=== PATIENT | female | born 1930 | race Caucasian/White ===

== ENCOUNTER 2019-11-30 17:23 | Inpatient (IN) | payer MEDICARE, OTHER ==
[~2019-11-30] VITALS: Ht 167.6 cm; Wt 67.8 kg
--- NOTE | ~2019-11-30 | OP ---
[address] [address] OPERATIVE REPORT Name: SANDRA EDEN Room: [address] IN .R.#: [id number] Admission: 11/30/19 Attend Phys: Benny Villafana Discharge: Date of : 04/23/[birth year] Report #: [id number] THIS REPORT FOR: //name// CC: FAM unknown Gavin Castrejon DATE OF SERVICE: 12/01/2019 PREOPERATIVE DIAGNOSIS: Comminuted left hip intertrochanteric fracture. POSTOPERATIVE DIAGNOSIS: Comminuted left hip intertrochanteric fracture. OPERATION PERFORMED: Open reduction and internal fixation of left proximal femur with cephalomedullary nail. SURGEON: Bruno Williamson DO HAT SPRAYER: Kareem Garcia DO ESTIMATED BLOOD LOSS: 100 mL. ANTIBIOTICS: 600 mg of clindamycin given IV within 1 hour of skin incision. ANESTHESIA: General plus local within the operative field. DRAINS: None. SPECIMENS: None. COMPLICATIONS: None. CONDITION: Stable. DISPOSITION: PACU to Med/Surg floor. IMPLANTS USED: The Sandra long gamma nail system was utilized with an 11 x 380 mm long gamma nail with a 100 mm lag screw and a 45 mm distal interlocking screw. OPERATIVE INDICATIONS: The patient is an 89-year-old female who presented to [facility] on the evening of 11/30/2019 after sustaining a fall at her [facility] die [facility] care facility. She landed on her left hip, had immediate pain and inability to bear weight. Radiographs did reveal a comminuted displaced intertrochanteric hip fracture. Risks, indications, and treatment alternatives were discussed with the patient and her family. Ultimately, it was decided to proceed with an insertion of a cephalomedullary nail today and her [address] [address] OPERATIVE REPORT Name: SANDRA EDEN Room: [address] IN ..#: [id number] Admission: 11/30/19 Attend Phys: Benny Villafana Discharge: Date of : 04/23/30 Report #: [id number] informed consent was signed. DESCRIPTION OF PROCEDURE: The patient was taken to the operating suite and placed on the operating table in supine position where general anesthesia was then induced. The patient was placed on the [place] table. The right lower extremity was well padded and flexed, so that we could obtain appropriate fluoroscopic images throughout the procedure. The left lower extremity was secured to the fracture table. Prior to the operative prep, a closed reduction maneuver was performed with traction and internal rotation. The reduction was confirmed to be appropriate on AP and lateral images, and we did proceed with a left hip sterile prep at this point. A time-out was then performed to confirm that our safety checklist has been completed and all of the OR personnel was in agreement. The axis of the femur was marked out utilizing the C-arm. A skin incision was then made proximal to the greater trochanter in line with the femur, about 4 cm. A sharp dissection was carried down through skin and fascial layer. A hemostat was then used to expose the tip of the greater trochanter. The starting guidepin was then placed in the appropriate position on the greater trochanter in both the AP and lateral imaging. The 15.5 mm opening reamer was then placed down to the level of the lesser trochanter. The starting guidepin was removed and replaced with a ball tip guidewire. This was measured distally to the level of the superior pole of the patella. This measured approximately 380 mm. We then began with sequential reaming while the fracture was held in a reduced position. Indirect reduction maneuver was used by pushing lateral to medial on the greater trochanter fragment, which did reduce the fracture very well. Sequential reaming was then performed with 11, 12, and 13 mm reamers. There was a mild chatter encountered. The gamma nail was then passed over the guidewire. The guidewire was removed. The trocar was passed through the targeting guide, and the skin incision was made in appropriate positioning for the lag screw. Sharp dissection was carried down through the skin and subcutaneous tissue and the fascial layer. The trocar was then introduced and placed on the lateral aspect of the femur. The guidepin was then introduced through this. This was confirmed to be in appropriate positioning within the femoral neck and in the central aspect of the femoral head on both the AP and lateral imaging. This was then appropriately measured and the cannulated reamer was placed at 100 mm and was reamed over the guidepin. The appropriate sized lag screw was then placed. The fracture was noted to remain in a reduced position at this point. The set screw was then placed and the lag screw was confirmed to be locked into position. The targeting guide was then removed. Attention was taken to the distal femur where a perfect kootenai technique was utilized to place the distal interlocking screw. Skin incision was made over the distal femur. The drill was placed on the lateral femoral cortex. It was then drilled bicortically, measured appropriate length screw. This was then placed and found to have excellent purchase. Final C-arm fluoroscopy images were then taken, the implants were in appropriate positioning, and the fracture was well reduced. The wounds were then copiously irrigated. A layered closure performed with #1 Vicryl suture in a uaiqoo-ur-afeyr fashion on the fascial [address] [address] OPERATIVE REPORT Name: SANDRA EDEN Room: [address] IN [facility].#: [id number] Admission: 11/30/19 Attend Phys: Benny Villafana Discharge: Date of : 04/23/30 Report #: [id number] layer. The subcutaneous layer was re-approximated with 2-0 Vicryl. [place] were used on the skin. Mepilex dressings were applied followed by a pressure dressing with 4 x 4 bandages and ABD bandages and tape. The patient tolerated the procedure well and was transferred to the PACU in stable condition with no apparent complications. Dr. Williamson was present for the entirety of the operation. By: [id number] Williamson, /nt
[2019-11-30 17:31] VITALS: BP 189/74
[2019-11-30] MEDS ORDERED: VITAMIN D400 UNIT PO (17:55)
[2019-11-30] MEDS ORDERED: VYZULTA5 ML OPHTHALMIC (17:55)
[2019-11-30] MEDS ORDERED: ZESTRIL5 MG PO (17:56)
[2019-11-30] MEDS ORDERED: EFFER-K 10 MEQ10 ME1 PO (17:56)
[2019-11-30] MEDS ORDERED: NAMENDA 10 MG T10 MG PO (17:56)
[2019-11-30] MEDS ORDERED: VITAMIN B-121000 MC2 SUBLING (17:56)
--- NOTE | 2019-11-30 18:20 | NUR ---
PUREWICK PLACED R/T INCONTINENCE AND PAIN IN HIP
[2019-11-30 19:53] LABS: ABSOLUTE BASOPHILS 0.1 thou/uL (0.0-0.2); ABSOLUTE EOSINOPHILS 0.1 thou/uL (0.0-0.7); ABSOLUTE LYMPHOCYTES 1.7 thou/uL (0.8-5.3); ABSOLUTE MONOCYTES 0.7 thou/uL (0.0-1.2); ABSOLUTE NEUTROPHILS 9.4 thou/uL (1.6-8.1); EOSINOPHILS 0.5 %; HEMATOCRIT 38.5 % (37.0-47.0); HEMOGLOBIN 13.2 gm/dL (12.0-15.0); LYMPHOCYTES 14.1 %; MCH 30.5 pg (26.0-34.0); MCHC 34.3 g/dL (28.0-37.0); MCV 88.8 fL (80.0-100.0); MONOCYTES 6.1 %; MPV 8.7 fl. (7.2-11.1); NUCLEATED RBCS 0 /100WBC; PLATELET COUNT* 187 thou/uL (150-400); POLYS 78.3 %; RBC 4.34 mil/uL (4.20-5.00); RDW-CV 14.5 % (10.5-14.5)
[2019-11-30 20:05] LABS: APTT 21.6 Seconds (25.0-31.3)
[2019-11-30 20:21] LABS: CALCIUM 8.4 mg/dL (8.5-10.1); CREATININE 0.8 mg/dL (0.6-1.3)
[2019-11-30 20:25] LABS: ALBUMIN 3.3 g/dL (3.4-5.0); TOTAL BILIRUBIN 0.5 mg/dL (<0.1-1.0); TOTAL PROTEIN 6.3 g/dL (6.4-8.2)
[2019-11-30 20:49] LABS: URINE BILIRUBIN NEGATIVE (Negative); URINE BLOOD NEGATIVE (Negative); URINE CLARITY CLEAR; URINE COLOR YELLOW; URINE GLUCOSE-RANDOM NEGATIVE (Negative); URINE KETONES NEGATIVE (Negative); URINE LEUKOCYTES-REFLEX NEGATIVE (Negative); URINE NITRITE-REFLEX NEGATIVE (Negative); URINE PROTEIN NEGATIVE (Negative); URINE SPECIFIC GRAVITY 1.015 (1.005-1.030); URINE UROBILINOGEN 0.2 E.U./dl (0.2-1.0)
[2019-11-30 22:15] VITALS: BP 159/55
[2019-11-30 22:25] VITALS: BP 118/67
--- NOTE | 2019-12-01 00:08 | NUR ---
ALERT AND ORIENTED X 4 FEMALE WITH FORGETFULNESS TO ROOM 105 BY CART FROM ER ACCOMPANIED BY SON NATHANAEL EDEN (AND GILMAR WORTHINGTON) IN STABLE CONDIITON. ADMISSION ROUTINES IN PROGRESS. VITAL SIGNS STABLE. CONTINUE TO MONITOR.
--- NOTE | 2019-12-01 04:43 | NUR ---
PATIENT HAS REMAINED ALERT AND ORIENTED X 4 WITH FORGETFULNES. MEDICATED FOR PAIN X 1 OF THIS WRITING TO GOOD EFFECT. LLE ELEVATED ON PILLOW. NOTED DEFORMITY LEFT HIP AREA. SCD'S INITIATED. NPO AT MIDNIGHT. IVF'S PER ORDER. AWAITING ORTHO CONSULT THIS AM. BED ALARM ON FOR SAFETY. CONTINUE TO MONITOR.
[2019-12-01 08:13] VITALS: BP 135/49
--- NOTE | 2019-12-01 09:00 | NUR ---
ATTEMPT TO VISIT WITH PT. PT IN OR. WILL ATTEMPT AGAIN THIS AFTERNOON
--- NOTE | 2019-12-01 11:14 | EKG ---
[place] [address] ELECTROCARDIOGRAM REPORT Name: SANDRA EDEN Room: [address] ADM IN [facility].#: [id number] Admission: 11/30/19 Attend Phys: Benny Villafana Discharge: Date of : 04/23/30 Report #: [id number] THIS REPORT FOR: //name// [facility] ED Test Date: 2019-11-30 Test Time: 19:20:19 Pat Name: SANDRA EDEN Department: Room: [facility] Gender: F Instructor Creeler: : 1930 Requested By: Chelle De Santiago Order Number: [id number] MD: Tad Kraus Measurements Intervals [place] Rate: 54 P: 80 DC: 156 QRS: 64 QRSD: 108 T: 59 QT: 432 QTc: 410 Interpretive Statements Sinus bradycardia Biatrial enlargement Abnormal R-wave progression, early transition No previous ECG available for comparison Electronically Signed On 12-01-2019 11:13:37 PIGMENT PUSHER by Tad Kraus [email or web address] <ELECTRONICALLY SIGNED> By: Tad Kraus MD, [facility] 12/01/19 1113 19 19 Tad Kraus MD, FACC /EPI
--- NOTE | 2019-12-01 13:46 | NUR ---
PT ARRIVED BACK FROM PACU ABOUT 1335. PT IS GRUMPY AND DOES NOT WANT TO BE ASKED QUESTIONS OR BE ASSESSED. DRESSING C/D/I. IV PATENT. REFUSES OX, PULSE OX IN PLACE. ICE PACK IN PLACE. FALL PRECAUTIONS IN PLACE. WILL CONTINUE TO MONITOR.
--- NOTE | 2019-12-01 14:37 | NUR ---
CM ASSESSMENT: PT BACK FROM SURGERY BUT SLEEPY.SPOKE WITH SON ON PHONE. HE STATES SHE LIVES AT THE [facility]. PT WILL NEED REHAB/SNU UPON DC. SON STATES HE WOULD LIKE TO REMAIN IN [place] IF POSSIBLE. FIRST CHOICE IS [facility] OR REHAB UNIT AT [facility]. HE WOULD ALSO BE OPEN TO [facility]
[2019-12-01 16:44] VITALS: BP 140/82
--- NOTE | 2019-12-01 17:25 | NUR ---
PT IS A&Ox2, SINCE ARRIVED BACK TO FLOOR FROM PACU PT HAS BEEN FORGETFUL ABOUT WHERE SHE IS AND WHY SHE IS HERE. NORCO GIVEN FOR PAIN. DENIED NAUSEA, ABLE TO EAT DINNER. IV PATENT. DRESSING C/D/I. ICE PACK, PULSE OX AND SCDs IN PLACE. HAS NOT GOT UP SINCE SURGERY. SON HAS BEEN AT BEDSIDE MOST OF SHIFT. FALL PRECAUTIONS IN PLACE. CALL LIGHT WITHIN REACH. WILL CONTINUE TO MONITOR.
[2019-12-01 20:00] VITALS: BP 151/60
[2019-12-02 02:22] VITALS: BP 141/60
[2019-12-02 04:04] LABS: HEMATOCRIT 29.2 % (37.0-47.0)
[2019-12-02 04:11] LABS: HEMOGLOBIN 10.1 gm/dL (12.0-15.0)
[2019-12-02 04:32] VITALS: BP 167/71
--- NOTE | 2019-12-02 04:40 | NUR ---
PATIENT LESS ORIENTED THIS SHIFT POST-OP. NEEDED VERY FREQUENT INTERACTION PATIENT PULLING AT LINES, SCD'S, PULLING O2 SAT MONITOR LEAD OFF 3X AND CATHETER. KEARNEY DISCONTUNED AT 0400 PER POST-OP D/C PROTOCOL. MEDICATED X 2 FOR PAIN. VITAL SIGNS STABLE. LESS RESTLESS AFTER KEARNEY CATHETER REMOVED. CURRENTLY FOLDING HER BLANKETS. BED ALARM ON FOR SAFETY. FIRST VOID PENDING. CONTINUE TO MONITOR.
--- NOTE | 2019-12-02 08:03 | NUR ---
SPOKE TO YUVAL MILLER REGARDING PATIENT'S INCREASED AGGITATION. NEW ORDERS RECEIVED.
[2019-12-02 08:45] VITALS: BP 137/55
[2019-12-02 16:00] VITALS: BP 119/53
[2019-12-02 20:00] VITALS: BP 153/61
--- NOTE | 2019-12-02 20:17 | NUR ---
I ASSUMED CARE OF THE PATIENT AT 0700. SHE IS ALERT TO SELF ONLY. BED IS IN THE LOW LOCKED POSITION AND CALL LIGHT IS IN REACH. PATIENT NEEDS ARE MET DURING HOURLY ROUNDING AND PAIN IS MANAGED WITH PRN MEDS. FAMILY IS AT THE BEDSIDE. PATIENT IS A 'NO CODE' AT THE [facility], BUT STILL A FULL CODE HERE FROM SURGERY AND SHOULD BE ADJUSTED. SHE WOULD ALSO LIKE TO BE CONSIDERED FOR REHAB HERE WITH DR MARCELINO. SHE PULLED LOTS OF STUFF OFF/OUT DURING THE NIGHT. TODAY SHE D/C'D HER OWN IV. SURGICAL BANDAGE IS STILL C/D/I. SHE IS INCONT OF BLADDER. SHE DESATS ON ROOM AIR, BUT ISN'T VERY COMPLIANT WITH NC AT 2 LITERS AND FAMILY IS AWARE. WILL CONTINUE TO MONITOR.
[2019-12-03 04:34] LABS: HEMATOCRIT 21.7 % (37.0-47.0); MCH 31.4 pg (26.0-34.0); MCHC 35.3 g/dL (28.0-37.0); MCV 89.1 fL (80.0-100.0); MPV 9.2 fl. (7.2-11.1); RBC 2.44 mil/uL (4.20-5.00); RDW-CV 14.3 % (10.5-14.5); WBC 8.2 thou/uL (4.0-11.0)
--- NOTE | 2019-12-03 04:46 | NUR ---
ASSUMED PT CARE AT 1930. ALERT TO SELF. PT CALM AND SLEPT OVERNIGHT. INCONTINENT OF BLADDER. SURGICAL BANDAGES TO LEFT HIP C/D/I. ON 2L 02 PER NC. PT REFUSED 0100 TYLENOL. PT IS A "NO CODE" AT THE [facility], BUT STILL A FULL CODE HERE FROM SURGERY. SHE WOULD ALSO LIKE TO BE CONSIDERED FOR REHAB HERE BY DR. MARCELINO. HOURLY ROUNDING IN PROGRESS, WILL CONTINUE TO MONITOR.
[2019-12-03 04:51] LABS: CALCIUM 7.4 mg/dL (8.5-10.1); CREATININE 0.7 mg/dL (0.6-1.3); MAGNESIUM 1.8 mg/dL (1.8-2.4); POTASSIUM 3.6 mmol/L (3.5-5.1)
[2019-12-03 04:59] LABS: HEMOGLOBIN 7.7 gm/dL (12.0-15.0)
[2019-12-03 07:45] VITALS: BP 118/46
[2019-12-03 16:00] VITALS: BP 119/55
--- NOTE | 2019-12-03 17:53 | NUR ---
PATIENT HAS BEEN A/O TO PERSON THIS SHIFT. PATIENT CONTINUES ON SCHEDULED TYLENOL FOR PAIN AND LIDODERM PATCH TO LEFT LEG. DRESSINGS REMAIN TO LEFT LEG. PATIENT WITH POOR APPETITE THIS SHIFT, ATE BETTER FOR LUNCH THAN BREAKFAST AND DINNER. ASSISTED WITH MENU FOR WEDNESDAY. REPOSITIONED THIS SHIFT WHEN ALLOWED. PATIENT MORE AWAKE AND CONVERSATIONAL THIS AFTERNOON. PATIENT INCONTINENT OF URINE, HOSSEIN-CARE PROVIDED. VITALS STABLE. UPDATED SON ON PLAN OF CARE. CM IN PROGRESS FOR DC PLANNING. WORKED WITH PHYSICAL THERAPY THIS SHIFT, UP IN CHAIR FOR PART OF THE SHIFT. FALL PRECAUTIONS IN PLACE. HOURLY ROUNDING COMPLETED. CALL LIGHT WITHIN REACH. WILL CONTINUE WITH PLAN OF CARE.
--- NOTE | 2019-12-03 19:28 | NUR ---
PATIENT UNABLE TO VOID. BLADDER DISTENDED, BLADDER SCAN SHOWED 628ML. PAGED DR. PATEL, DR. BARAKAT RETURNED CALL. ORDERS NOTED FOR KEARNEY CATHETER AND TO START FLOMAX. 16FR KEARNEY INSERTED, IMMEDIATE RETURN OF YELLOW URINE NOTED. PATIENT TOLERATED WELL. REPORT GIVEN TO NIGHT RN.
[2019-12-03 20:00] VITALS: BP 124/50
--- NOTE | 2019-12-04 02:57 | NUR ---
ASSESSMENT: PT REMAIN ALERT AND ORIENT TIMES TWO, CONFUSED TO SITUATION AND TIME. PT IS NOT SO EASY TO REORIENT BUT CONTINUAL REMINDERS GIVEN OF LEFT HIP FRACTURE. PT WAS RETAINING 630 ML OF URINE PER BLADDER SCAN. ORDER FROM YUVAL MILLER TO PLACE KEARNEY AND TO START FLOMAX. KEARNEY PLACED WITHOUT DIFFICULTY, DARK YELLOW URINE OUTPUT NOTED. DRESSING ON LEFT HIP INTACT, PT REMINDED NOT TO PULL DRESSING OFF. TURNED EVERY TWO HOURS. TOLERATING 2 LITERS. SCHEDULED TYLENOL GIVEN WITH GOOD RESULTS, PT SLEPT MOST OF THE NIGHT, SLOW PROGRESS TOWARDS DC GOALS, WILL CONTINUE TO MONITOR.
[2019-12-04 04:44] LABS: HEMATOCRIT 21.4 % (37.0-47.0); HEMOGLOBIN 7.6 gm/dL (12.0-15.0); MCH 31.7 pg (26.0-34.0); MCHC 35.7 g/dL (28.0-37.0); MCV 88.9 fL (80.0-100.0); MPV 9.1 fl. (7.2-11.1); RBC 2.4 mil/uL (4.20-5.00); RDW-CV 14.7 % (10.5-14.5); WBC 6.7 thou/uL (4.0-11.0)
[2019-12-04 05:02] LABS: CALCIUM 7.6 mg/dL (8.5-10.1); CREATININE 0.7 mg/dL (0.6-1.3); MAGNESIUM 1.8 mg/dL (1.8-2.4); POTASSIUM 3.4 mmol/L (3.5-5.1)
[2019-12-04 08:34] VITALS: BP 140/51
--- NOTE | 2019-12-04 10:36 | NUR ---
FAXED REFERRALS TO [facility] WITH POSSIBLE DISCHARGE TOMORROW, 12/05/19. WILL FOLLOW UP TO CONIRM THEY RECEIVED.
--- NOTE | 2019-12-04 15:40 | NUR ---
AUNDREA/PENNY CALLED [facility] AND SAID THEY CANNOT ACCEPT PT. SHE SAID HER D.O.N. FEELS PT.WOULD BE BETTER SERVED ON A MEMORY CARE UNIT. AWAITING CALL BACK FROM [facility] TO SAY IF THEY CAN ACCEPT PT. POSSIBLE DISCHARGE FOR TOMORROW.
--- NOTE | 2019-12-04 15:52 | NUR ---
ASSUMED CARE AT 0730. ALERT TO SELF HX OF DEMENTIA ON NAMENDA. HX OF L HIP FX. WBATLLE DRESSING C/D/I. EDEMA PRESENT LLE. PT. WAS TRANSFERRED TO RECLINER BY P.T. THIS A.M. PT. HAD L DRIFT PRONATION L ARM C/O PAIN AND DROPPING THINGS WITH L HAND. DR. FRANCOIS ORDERED CT ANGIOGRAM OF THE HEAD THIS AFTERNOON. PT. IS ON SCHEDULED TYLENOL FOR PAIN AND DENIES PAIN AT REST. WHEN TRANSFERRING BACK TO BED FOR CT PT. NEEDED MAX ASSIST WITH G BELT WALKER AND P.T. SEEMS AFTRAID OF EXPERIENCING PAIN WITH TRANSFER. SL RT. ANTECUBITAL FOR CT. RESTING IN BED AFTER C.T.
[2019-12-04 16:00] VITALS: BP 117/58
[2019-12-04 22:28] VITALS: BP 149/76
--- NOTE | 2019-12-05 04:47 | NUR ---
PATIENT CONFUSED AND TRYING TO LEAVE FACILITY BUT CANNOT GET OUT OF BED. SHE KEEPS YELLING TO LET HER OUT. VSS. MEPALEX ON HIP IS C/D/I. HAD TO GIVE 2MG HALDOL FOR ANXIETY AND SHE KEPT TRYING TO GET OUT OF BED. PLAN FOR NEURO WORKUP MRI OF HEAD RESULTS. WILL CONTINUE TO FOLLOW PLAN OF CARE.
[2019-12-05 07:15] VITALS: BP 155/64
[2019-12-05] MEDS ORDERED: FLOMAX0.4 MG PO (14:30)
[2019-12-05] MEDS ORDERED: ELIQUIS5 MG PO (14:30)
[2019-12-05] MEDS ORDERED: HIGH POTENCY I134 MG PO (14:31)
[2019-12-05] MEDS ORDERED: LIDOPATCH1 EACH TOP (14:33)
--- NOTE | 2019-12-05 15:09 | NUR ---
KOBI/AIMEE ASKING [facility] IF PT.READY FOR DISCHARGE TODAY. LIZ ASKED IF PT. COULD DISCHARGE TODAY. ONCE ANSWER RECEIVED, CM CALLED KOBI BACK. SHE SAID SHE COULD NOT TAKE PT.ANY LONGER TODAY BUT SHE CAN COME TOMORROW AM. NOTIFIED NURSING, AND PT.S SON.
[2019-12-05 16:00] VITALS: BP 174/57
--- NOTE | 2019-12-05 17:29 | NUR ---
PT REMAINED ALERT AND ORIENTED TO SELF. PT BP ELEVATED, PHYSICIAN NOTIFIED. PAIN MEDS GIVEN ORDERED. FALL RISK PRECAUTIONS IN PLACE. HOURLY ROUNDING COMPLETED. WILL CONTINUE TO MONITOR.
[2019-12-05 21:40] VITALS: BP 115/76
--- NOTE | 2019-12-06 04:51 | NUR ---
PT SLEEPING/RESTING QUIETLY THROUGH THE NIGHT. VSS ON RA. MEDS CRUSHED AND GIVEN WITH APPLESAUCE. PT DENIED PAIN. DRESSING INTACT. HOURLY ROUNDING COMPLETED. WILL CONTINUE TO MONITOR.
[2019-12-06 04:57] LABS: CHOLESTEROL 160 mg/dL (<200); HDL CHOLESTEROL 54 mg/dL (>40); LDL CHOLESTEROL 87 mg/dL (<100); TRIGLYCERIDE 98 mg/dL (<150); VLDL 20 mg/dL (<40)
[2019-12-06 05:19] LABS: SERUM ASSESSMENT CLEAR
[2019-12-06 08:45] VITALS: BP 158/58
[2019-12-06 15:59] LABS: ABSOLUTE BASOPHILS 0.1 thou/uL (0.0-0.2); ABSOLUTE EOSINOPHILS 0.2 thou/uL (0.0-0.7); ABSOLUTE LYMPHOCYTES 1.7 thou/uL (0.8-5.3); ABSOLUTE MONOCYTES 0.7 thou/uL (0.0-1.2); ABSOLUTE NEUTROPHILS 6.1 thou/uL (1.6-8.1); BASOPHILS 0.8 %; EOSINOPHILS 1.8 %; HEMATOCRIT 23.6 % (37.0-47.0); LYMPHOCYTES 19.5 %; MCH 31.1 pg (26.0-34.0); MCHC 33.8 g/dL (28.0-37.0); MCV 91.7 fL (80.0-100.0); MONOCYTES 7.9 %; MPV 8.6 fl. (7.2-11.1); NUCLEATED RBCS 0 /100WBC; PLATELET COUNT* 264 thou/uL (150-400); RBC 2.57 mil/uL (4.20-5.00); RDW-CV 14.9 % (10.5-14.5); WBC 8.7 thou/uL (4.0-11.0)
[2019-12-06 16:00] VITALS: BP 145/66
[2019-12-06 16:23] LABS: ALBUMIN 2.5 g/dL (3.4-5.0); CALCIUM 8.3 mg/dL (8.5-10.1); CREATININE 0.6 mg/dL (0.6-1.3); POTASSIUM 4.1 mmol/L (3.5-5.1); TOTAL BILIRUBIN 1.7 mg/dL (<0.1-1.0)
[2019-12-06 17:08] LABS: ESR (SEDRATE) 90 mm/hr (0-30)
--- NOTE | 2019-12-06 19:00 | NUR ---
PATIENT ORIENTED TO SELF. MAX ASST X3 TO BSC THIS AM, ARGUMENTATIVE WITH STAFF THIS AM. NOTED RESTING IN BED W/ EYES CLOSED, RESPS EVEN AND UNLABORED THRU MOST OF SHIFT, AROUSES TO VERBAL/TOUCH STIM. SEE MAR. DENIES PAIN THIS AFTERNOON. APPLESAUCE GIVEN WITH MEDS. HRLY ROUNDS DONE. PATIENT INCONTI AT TIMES. CALL LIGHT IN REACH. BED ALARM ON. ~TJRN
[2019-12-06 20:00] VITALS: BP 143/49
--- NOTE | 2019-12-07 04:40 | NUR ---
PATIENT HAS REMAINED ALERT AND ORIENTED X 1-2 WITH FORGETFULNESS. CONVERSATIONAL AT HS. TOOK ENSURE AND APPLESAUCE WITH ORAL MEDS. TURNED Q2H. PATIENT RESISTIVE AT TIMES BUT ABLE TO CONVINCE HER TO PARTICIPATE. DRESSING LEFT HIP DRY. INCONT URINE. SCHEDULED TYLENOL FOR PAIN MANAGEMENT HAS BEEN FAIRLY EFFECTIVE FOR THE ACTIVITY THAT HAS TAKEN PLACE THIS SHIFT. BED ALARM ON FOR SAFETY. SON CINTHYA CALLED AFTER HS MEDS/SNACK TO UPDATE HIM ON HER STATUS. SPECIFICALLY THAT SHE HAD BEEN AWAKE, TOOK NOURISHMENT AND HAD BEEN CONVERSATIONAL. CONTINUE TO MONITOR.
[2019-12-07 09:15] VITALS: BP 87/54
--- NOTE | 2019-12-07 13:57 | NUR ---
Nutrition: pt screen for LOS. Wt is WNL, no wt hx. Pt with dementia. Albumin 2.5. Meds reviewed. Nsg reports pt doing well with meals today; needs soft food and chopped meat as she does not have dentures. Does not appear at significant nutrition risk at this time.
--- NOTE | 2019-12-07 15:44 | NUR ---
CONFIRMED WITH SAMEERA AT [facility] THAT THEY WON'T HAVE AVAILABILITY UNTIL 12/11/19. LEFT VM MESSAGES WITH OSCAR/LAETA AT [facility] BUT WITH NO RESPONSE AT THIS TIME.
--- NOTE | 2019-12-07 19:00 | NUR ---
PATIENT NOTED TO HAVE A VAGAL RESPONSE WITH PHYSICAL THERAPY THIS AM. VS DONE, MS ALSO PRESENT IN AT THIS TIME. PATIENT REPOSITIONED BACK IN BED. HOSSEIN CARES DONE PRN W/ BARRIER CREAM APPLIED. SKIN NOTED W/ LARGE AMTS PURPLE/FADING BRUISING TO LLE AND HOSSEIN AREA. SEE MAR. PATIENT NOTED MORE RESPONSIVE THRU THIS SHIFT, CONVERSING AND JOKING W/ STAFF. EATING WELL. SON AND DTR-IN-LAW THRU SHIFT. HRLY ROUNDS DONE. BED ALARM ON. DRSG TO LT HIP SURG SITES NOTED W/ OLD DRNG, NO ODOR. ~TJRN
[2019-12-07 20:50] VITALS: BP 155/51
[2019-12-08 02:23] LABS: URINE BILIRUBIN NEGATIVE (Negative); URINE BLOOD 1+ (Negative); URINE CLARITY CLOUDY; URINE COLOR YELLOW; URINE GLUCOSE-RANDOM NEGATIVE (Negative); URINE KETONES NEGATIVE (Negative); URINE LEUKOCYTES 2+ (Negative); URINE NITRITE NEGATIVE (Negative); URINE PROTEIN NEGATIVE (Negative); URINE SPECIFIC GRAVITY 1.015 (1.005-1.030); URINE UROBILINOGEN 0.2 E.U./dl (0.2-1.0)
[2019-12-08 02:33] LABS: BACTERIA >30 Many /HPF (None Seen); CASTS None Seen /LPF (None Seen); CRYSTALS None Seen /LPF (None Seen); MUCUS 0-3 Light strn/LPF (None Seen); SQUAMOUS 0-3 Few /LPF (0-3); URINE RBC 3-10 Few /HPF (0-2); URINE WBC >25 Many /HPF (0-5)
[2019-12-08 04:09] LABS: ALBUMIN 2.1 g/dL (3.4-5.0); CALCIUM 7.6 mg/dL (8.5-10.1); CREATININE 0.6 mg/dL (0.6-1.3); POTASSIUM 4.2 mmol/L (3.5-5.1); TOTAL BILIRUBIN 1.2 mg/dL (<0.1-1.0); TOTAL PROTEIN 5.2 g/dL (6.4-8.2)
--- NOTE | 2019-12-08 06:08 | NUR ---
Oriented x 1-2 but very pleasant. Vital signs stable,roomair sat 100%. [place] mepilex dressing to L hip is dry and intact. She is very bruised to that L leg and groin and periarea. She has been incontinent of urine and also did have a BM. Straight cathed for UA and it was sent to lab. She is taking scheduled tylenol for pain. She has slept well.
[2019-12-08 07:40] VITALS: BP 121/50
--- NOTE | 2019-12-08 07:45 | CON ---
[address] [address] CONSULTATION Name: SANDRA EDEN Room: [address] IN .R.#: [id number] Admission: 11/30/19 Attend Phys: Benny Villafana Discharge: Date of : [birth year] Report #: [id number] THIS REPORT FOR: //name// CC: FAM unknown Gavin Castrejon DATE OF SERVICE: 12/07/2019 INFECTIOUS DISEASE CONSULTATION ATTENDING PHYSICIAN: Gavin Castrejon DO REASON FOR EVALUATION: Nosocomial fevers. HISTORY OF PRESENT ILLNESS: Chart reviewed, patient examined. This is an 89-year-old woman with history of some dementia, who sustained injury as a result of fall with a comminuted fracture of the left hip intertrochanteric site and underwent insertion of long cephalomedullary nail in the femur to repair. Postop course apparently has been complicated by some encephalopathy most recently over the course of last evening and developed a temperature elevation to 99.9. At this point, she is much more lucid per nursing staff. On questioning, she does admit to left hip pain. She denies significant discomfort otherwise. She has not had breathing difficulties. She states her appetite has been fair. As per the evaluation, chest x-ray was done, which showed no acute process. Lactic acid was 1.2. CRP was elevated at 113. White count was normal. Sed rate was 90. She is afebrile this morning. She has not been on any antibiotics. Urinalysis is pending. ALLERGIES: LISTED TO PENICILLINS. CURRENT MEDICATIONS: Include hydralazine, tamsulosin, tramadol, apixaban, famotidine, Haldol, lisinopril, memantine. PAST MEDICAL HISTORY: As described above, history of hypertension, hyperlipidemia, glaucoma, osteopenia, breast cancer. SOCIAL HISTORY: Nonsmoker, no ethanol, no illicit drug use. FAMILY HISTORY: Noncontributory. REVIEW OF SYSTEMS: Otherwise, limited. The patient has dementia. PHYSICAL EXAMINATION: GENERAL: She awakens easily. She is pleasant, cooperative. Does have memory deficits, in egnh-fw-gntlxnmt distress. She appears somewhat chronically ill, [place] [address] CONSULTATION Name: SANDRA EDEN Room: [address]#: [id number] Admission: 11/30/19 Attend Phys: Benny Villafana Discharge: Date of : [birth year] Report #: [id number] VITAL SIGNS: Temperature 98.4, pulse 78, respirations 18, blood pressure 143/49. SKIN: Warm, dry, no rashes. HEENT: Normocephalic. Extraocular muscles intact. NECK: Supple. LUNGS: Diminished breath sounds, otherwise clear. HEART: Regular. I do not appreciate any murmur. ABDOMEN: Soft, nontender, nondistended. EXTREMITIES: Left hip is palpably tender. There is no really evidence of a cellulitic process. There is some scant bloody drainage on the dressing. GENITOURINARY AND RECTAL: Deferred. LABORATORY DATA: Prealbumin 11.6. CBC: White count of 8.7, H and H 8.0 and 23.8, platelets of 264. Sed rate of 90. Sodium 139, potassium 4.1, chloride 104, bicarbonate is 25, anion gap of 10, BUN and creatinine 14 and 0.6. SGOT of 67, ALT of 50, albumin of 2.5, total protein 6.0. Estimated GFR of 94. Lactic acid 1.6. CRP of 113.2. ASSESSMENT AND PLAN: Nosocomial related fevers. It is not entirely clear as to the etiology. We will await urinalysis. There is no obvious point of focal pyogenic infection at this point. It is reasonable to continue to monitor expectantly off the antibiotics. Subsequently could add therapy if there is any evidence of clinical deterioration or ongoing fevers and may well be a noninfectious cause as well. When it is feasible, increase her activities. She was encouraged to use incentive spirometer, although she seemed unaware what its purpose was. In the event that she has an occult process that was worthwhile pursuing as she may not be a candidate for significant inflammatory processes, could CT of abdomen and pelvis, otherwise favor watchful waiting and see how she does. <ELECTRONICALLY SIGNED> By: Aidan Goddard MD 12/08/19 0745 [id number] Goddard MD /nt
--- NOTE | 2019-12-08 08:08 | NUR ---
ASSUMED CARE OF PATIENT THIS AM. PATIENT A/O X 1 THIS MORNING, PLEASANTLY CONFUSED. PATIENT DENIES PAIN WHEN ASKED. PATIENT NOTED TO HAVE SALINE LOCK TO RIGHT UPPER ARM, PATENT. PATIENT'S VITALS CHARTED. ASSISTED WITH BREAKFAST, APPETITE FAIR. DRESSING TO LEFT HIP NOTED, SOME SHADOWING OBSERVED, OTHERWISE INTACT. FALL PRECAUTIONS IN PLACE. WILL CONTINUE WITH PLAN OF CARE.
[2019-12-08 16:00] VITALS: BP 138/62
--- NOTE | 2019-12-08 16:30 | NUR ---
NO FAMILY HERE. LEFT FOR SON,CINTHYA ON HOME PHONE. UPDATED HIM THAT [facility] WADDELL SAID NO FOR SNF, [facility] WOULD NOT HAVE ANY BEDS UNTIL WEDNESDAY AND THAT WOULD LIKE 1-2 MORE OF HIS CHOICES FOR SNFS. PT.MOST LIKELY READY FOR DISCHARGE SOON.
--- NOTE | 2019-12-08 18:54 | NUR ---
PATIENT HAS BEEN A/O TO PERSON THIS SHIFT, PLEASANTLY CONFUSED. PATIENT WITH MEPILEX TO LEFT HIP, MINIMAL SHADOWING NOTED. PATIENT ATTEMPTING TO WORK WITH PT/OT, MAX ASSIST OF 2. PATIENT INCONTINENT OF URINE AND STOOL. REPOSITIONED WHEN ALLOWED. PATIENT'S TYLENOL DC'D DUE TO ELEVATED LFTs. ABDOMINAL ULTRASOUND COMPLETED. APPETITE FAIR, ASSISTED WITH MEALS. RECEIVED IV ROCEPHIN X 1. SALINE LOCK PATENT. FALL PRECAUTIONS IN PLACE. HOURLY ROUNDING COMPLETED. CALL LIGHT WITHIN REACH. WILL CONTINUE WITH PLAN OF CARE.
[2019-12-08 19:55] VITALS: BP 128/64
--- NOTE | 2019-12-09 05:11 | NUR ---
PT ALERT TO HERSELF, CONFUSED. MEDS GIVEN ORDERED. TRAMADOL GIVEN FOR PAIN PER PT REQUEST. DRESSING TO LT HIP INTACT. PT INCONTINENT. DIDNT USE CALL LIGHT PROPERLY. BED ALARM ON FOR SAFETY. HOURLY ROUNDING COMPLETED. WILL CONTINUE TO MONITOR.
[2019-12-09 08:09] VITALS: BP 145/49
[2019-12-09 09:16] LABS: HEMATOCRIT 25.2 % (37.0-47.0); HEMOGLOBIN 8.7 gm/dL (12.0-15.0); MCH 31.7 pg (26.0-34.0); MCHC 34.7 g/dL (28.0-37.0); MCV 91.2 fL (80.0-100.0); NUCLEATED RBCS 0 /100WBC; RBC 2.76 mil/uL (4.20-5.00); RDW-CV 15.2 % (10.5-14.5); WBC 8.4 thou/uL (4.0-11.0)
[2019-12-09 09:20] LABS: CALCIUM 7.9 mg/dL (8.5-10.1); CREATININE 0.5 mg/dL (0.6-1.3); POTASSIUM 3.9 mmol/L (3.5-5.1)
[2019-12-09 09:25] LABS: PLATELET COUNT* 350 thou/uL (150-400)
[2019-12-09 10:02] LABS: ABSOLUTE EOSINOPHILS 0.2 thou/uL (0.0-0.7); ABSOLUTE LYMPHOCYTES 2.3 thou/uL (0.8-5.3); ABSOLUTE MONOCYTES 0.9 thou/uL (0.0-1.2); ANISOCYTOSIS Occasional; PLATELET ESTIMATE ADEQUATE
--- NOTE | 2019-12-09 17:48 | NUR ---
PT A&Ox1-2. VITALS STABLE. IV PATENT. UP WITH 2 MAX ASSIST. HOME USED TO TRANSFER FROM CHAIR BACK TO BED. PAIN CONTROLLED WITH TRAMADOL. DENIED NAUSEA. TOLERATING DIET. PURE WICK USED FOR INCONTINENCE AND HARD TRANSFERING. DRESSING C/D/I. FALL PRECAUTIONS IN PLACE. CALL LIGHT WITHIN REACH. WILL CONTINUE TO MONITOR.
[2019-12-09 19:45] VITALS: BP 132/58
[2019-12-10 04:27] LABS: HEMATOCRIT 23.6 % (37.0-47.0); HEMOGLOBIN 8.2 gm/dL (12.0-15.0); MCH 31.6 pg (26.0-34.0); MCHC 34.6 g/dL (28.0-37.0); MCV 91.3 fL (80.0-100.0); MPV 7.8 fl. (7.2-11.1); RBC 2.58 mil/uL (4.20-5.00); RDW-CV 15.1 % (10.5-14.5); WBC 7.1 thou/uL (4.0-11.0)
--- NOTE | 2019-12-10 04:43 | NUR ---
PATIENT AWAKE WITH CONVERSATION. ORIENTED X 1. COOPERATIVE WITH Q2H TURNS. USING PUREWICK TONIGHT TO MANAGE URINARY INCONTINENCE. DRESSINGS LEFT HIP DRY AND INTACT. MEDICATED FOR PAIN X 1 THIS SHIFT TO GOOD EFFECT. VITAL SIGNS STABLE. MEDS/ANTIBIOTICS PER ORDER. FALL PRECAUTIONS IN PLACE INCLUDING BED ALARM. CONTINUE TO MONITOR.
[2019-12-10 04:50] LABS: CALCIUM 7.7 mg/dL (8.5-10.1); CREATININE 0.5 mg/dL (0.6-1.3); MAGNESIUM 1.8 mg/dL (1.8-2.4); POTASSIUM 4.1 mmol/L (3.5-5.1)
[2019-12-10 09:30] VITALS: BP 136/55
[2019-12-10 16:00] VITALS: BP 143/57
--- NOTE | 2019-12-10 18:08 | NUR ---
PT A&OxSELF, DROWSY. UP WITH THERAPY. UP WITH 2 MAX ASSIST. EATING PARTIAL MEALS. DRESSING C/D/I. ICE APPLIED. IV ABX FOR UTI. WAITING SKILLED PLACEMENT. FALL PRECAUTIONS IN PLACE. CALL LIGHT WITHIN REACH. WILL CONTINUE TO MONITOR.
[2019-12-10 19:50] VITALS: BP 125/57
[2019-12-11 03:00] LABS: URINE BILIRUBIN NEGATIVE (Negative); URINE BLOOD NEGATIVE (Negative); URINE CLARITY CLEAR; URINE COLOR YELLOW; URINE GLUCOSE-RANDOM NEGATIVE (Negative); URINE KETONES NEGATIVE (Negative); URINE LEUKOCYTES-REFLEX NEGATIVE (Negative); URINE NITRITE-REFLEX NEGATIVE (Negative); URINE PROTEIN NEGATIVE (Negative); URINE SPECIFIC GRAVITY 1.015 (1.005-1.030); URINE UROBILINOGEN 0.2 E.U./dl (0.2-1.0)
[2019-12-11 04:00] VITALS: BP 130/48
--- NOTE | 2019-12-11 04:31 | NUR ---
PATIENT HAS REMAINED ALERT AND ORIENTED TO SELF. TURNED Q2H. PUREWICK UTILIZED FOR INCONTINENCE. PATIENT DID HOWEVER CALL OUT EARLY AM AND WHEN ATTENDING TO CALL PATIENT STATED SHE NEEDED TO GO TO THE BR TO HAVE A BM. MOD BM AND VOID PER BEDPAN WITH PATIENT ABLE TO ASSIST WITH PLACEMENT. PATIENT ALSO FREELY AND INDEPENDENTLY GETTING DRINKS OF WATER FROM BEDSIDE TABLE WITHOUT PROMPTING. DRESSINGS LEFT HIP DRY AND INTACT. VITAL SIGNS STABLE. URINE SENT OVER NIGHT TO LAB FOR FOLLOW-UP UA. RESULTS WITHIN NORMAL. FALL PRECAUTIONS IN PLACE. CONTINUE TO MONITOR.
[2019-12-11] MEDS ORDERED: CIPRO500 MG PO (09:30)
--- NOTE | 2019-12-11 10:15 | NUR ---
NOTIFIED BY ALEC BECKHAM THAT PT.HAS DISCHARGE ORDERS. LIZ CALLED SON,CINTHYA TO SEE WHAT OTHER CHOICES HE HAD FOR SNFS, SINCE KEVYN SAID NO . WILL TRY [facility] AGA[facility] THIS AM. HE SAID HE WOUDL NEED TO GET BACK WITH ME, HE NEEDED TO SPEAK WITH HIS . REMINDED HIM HE HAD MOST OF LAST WEEK TO LOOK AT FACILITIES.
--- NOTE | 2019-12-11 10:43 | NUR ---
FAXED REFERRAL TO [facility] AT [facility]. CONFIRMED WITH TENZIN/INTAKE THAT PATIENT IS TO DC TODAY AND THAT THEY HAVE ONE BED AVAILABLE. DCP TO FOLLOW UP. [facility] [place] [phone]; [phone].
--- NOTE | 2019-12-11 11:46 | NUR ---
FAXED REFERRAL TO [facility] IN [place] SPOKE TO CHANEL/MOE THAT PATIENT IS DISCHARGING TODAY AND WOULD BE SENDING REFERRAL. [phone]; [phone].
--- NOTE | 2019-12-11 14:03 | NUR ---
FAXED DC SUMMARY TO [facility]. CONFIRMED WITH [facility]/ADMISSIONS THAT THEY HAVE RECEIVED AUTHORIZATION AND CAN ACCEPT PATIENT TODAY. CM TO FOLLOW. [phone]; [phone].
--- NOTE | 2019-12-11 14:33 | NUR ---
[facility] ACCEPTED PT.TO A SKILLED BED TODAY. SHE ARRANGED WC VAN FOR 4:30PM. CM NOTIFIED SON OF ACCEPTANCE AND CHIEF MECHANICAL ENGINEER TIME. NOTIFIED JULIO, TO COPY CHART. BHAVANI TO CALL REPORT TO [phone].
[2019-12-11 14:43] VITALS: BP 130/48
[2019-12-11 16:14] VITALS: BP 144/64
--- NOTE | 2019-12-11 17:56 | NUR ---
PT DISCHARGED BY WHEELCHAIR VAN TO SNF AT ABOUT 1700. IV OUT. PT STABLE. DRESSING C/D/I. PERSONAL BELONGINGS SENT WITH PT. REPORT CALLED. SON NOTIFIED.
--- NOTE | 2019-12-18 12:03 | CON ---
[facility] [address] [place] [address] CONSULTATION Name: SANDRA EDEN Room: [address] IN M.R.#: [id number] Admission: 11/30/19 Attend Phys: Benny Villafana Discharge: 12/11/19 Date of : [birth year] Report #: [id number] THIS REPORT FOR: //name// CC: FAM unknown Gavin Castrejon DATE OF SERVICE: 12/04/2019 HISTORY OF PRESENT ILLNESS: This is an 89-year-old female patient who was seen by me for altered mental status. The patient does not provide any reliable history. The family tells me that this patient has dementia. She usually does not remember months. She usually remembers the close relatives. She fell and fractured the femur. She became confused, but she is becoming better. They also noticed some weakness on the left side. This weakness does not fluctuate. She does not know anything which makes it better or worse. This happened because she was ambulating and lost her balance. There is no evidence that this patient had any syncope or dizziness leading to this fall. REVIEW OF SYSTEMS: Positive for a fractured femur, she had surgery for that. She was confused after that, but she is becoming better. She is eating without any problems, but some left-sided weakness has been noticed in the left upper extremity. REVIEW OF SYSTEMS: Also positive for dementia and that is longstanding. I do not know how much workup she had for this dementia. She did have a B12 level during this admission and that was normal. A 14-point review of system was carried out and was otherwise mostly unremarkable. PAST MEDICAL HISTORY: Negative for stroke. FAMILY HISTORY: Negative for any early age stroke. SOCIAL HISTORY: She has a supportive family and I talked to them. PHYSICAL EXAMINATION: Indicates she does not know what month it is. She does not know what year it is. She does not know what hospital she is in. Her speech looks intact. Cranial nerve examination 2-12 was attempted. Her cooperation was poor, but I do not think she is having any significant problem in that regard. Her neuromuscular examination is difficult because of the fractured femur, but does not appear to be showing marked abnormality, but left arm may be weaker. She said she can appreciate the touch on both sides. There is no meningeal sign. She could not cooperate with the fundus examination. Pulses are difficult to feel. Her cardiac and respiratory examination is unremarkable. Blood pressure is 117/58, respiration is 17, pulse is 80, temperature is 97.6. [place] [address] CONSULTATION Name: SANDRA EDEN Room: [address]#: [id number] Admission: 11/30/19 Attend Phys: Benny Villafana Discharge: 12/11/19 Date of : [birth year] Report #: [id number] LABORATORY DATA: Her hemoglobin is 7.6. Vitamin B12 is normal. She already had a head CTA and that does not show any abnormality. She is also scheduled to have an MRI of the brain. I do not know whether it has been done or not. I will check with Radiology. IMPRESSION: The patient most likely has encephalopathy from which she is becoming better. On my examination, she does not appear to have any marked weakness on the left side. Since it was noticed that the possibility of transient ischemic attack or even small stroke cannot be fully excluded, we will await for MRI and see what does that show and then decide whether a carotid Doppler needs to be done or not. I discussed all of it with the patient and the family and they are agreeable with this plan. <ELECTRONICALLY SIGNED> By: Esequiel Olson MD 12/18/19 1203 1800 [id number] Olson MD /nt
== END 2019-12-11 17:57 | DRG 480 ==
LOC: M.ERS 17:23 → M.TBA-ER 20:37 → M.ORTHSURG 20:37
PROVIDERS: Internal Medicine; Nurse Practitioner Family; Orthopaedic Surgery; Psychiatry & Neurology Neuromuscular Medicine; ADMIT Internal Medicine
PROC: 0QS704Z Reposition Left Upper Femur with Internal Fixation Device, Open Approach (ICD-10-PCS; principal; 2019-12-01)
DX: S72.142A Displaced intertrochanteric fracture of left femur, initial encounter for closed fracture (principal); G93.41 Metabolic encephalopathy; D62 Acute posthemorrhagic anemia; N39.0 Urinary tract infection, site not specified; F03.90 Unspecified dementia, unspecified severity, without behavioral disturbance, psychotic disturbance, mood disturbance, and anxiety; K75.9 Inflammatory liver disease, unspecified; I10 Essential (primary) hypertension; E78.5 Hyperlipidemia, unspecified; Z88.0 Allergy status to penicillin; Z85.3 Personal history of malignant neoplasm of breast; Z79.899 Other long term (current) drug therapy; W18.39XA Other fall on same level, initial encounter; Y93.89 Activity, other specified; Y92.89 Other specified places as the place of occurrence of the external cause; Y99.8 Other external cause status

== ENCOUNTER 2019-12-18 18:09 | Inpatient (IN) | payer MEDICARE, OTHER ==
[~2019-12-18] VITALS: Ht 167.6 cm; Wt 65.0 kg
[~2019-12-18 18:09] MED LIST: CIPRO500 MG PO; EFFER-K 10 MEQ10 ME1 PO; ELIQUIS5 MG PO; FLOMAX0.4 MG PO; HIGH POTENCY I134 MG PO; LIDOPATCH1 EACH TOP; NAMENDA 10 MG T10 MG PO; VITAMIN B-121000 MC2 SUBLING; VITAMIN D400 UNIT PO; VYZULTA5 ML OPHTHALMIC; ZESTRIL5 MG PO
[2019-12-18 18:10] VITALS: BP 136/43
[2019-12-18] MEDS ORDERED: TYLENOL (18:25)
[2019-12-18] MEDS ORDERED: FLEET ENEMA133 ML RECTAL (18:26)
[2019-12-18] MEDS ORDERED: ASPERCREME1 EACH TOP (18:26)
[2019-12-18] MEDS ORDERED: CORRECTOL5 M1 PO (18:26)
[2019-12-18] MEDS ORDERED: CORTEF10 MG PO (18:27)
[2019-12-18] MEDS ORDERED: PEPCID20 MG PO (18:27)
[2019-12-18] MEDS ORDERED: ZOFRAN4 MG PO (18:28)
[2019-12-18 18:39] LABS: ABSOLUTE BASOPHILS 0.1 thou/uL (0.0-0.2); ABSOLUTE EOSINOPHILS 0.2 thou/uL (0.0-0.7); ABSOLUTE LYMPHOCYTES 0.9 thou/uL (0.8-5.3); ABSOLUTE MONOCYTES 0.9 thou/uL (0.0-1.2); ABSOLUTE NEUTROPHILS 5.8 thou/uL (1.6-8.1); BASOPHILS 0.8 %; HEMATOCRIT 24.7 % (37.0-47.0); HEMOGLOBIN 8.3 gm/dL (12.0-15.0); LYMPHOCYTES 12.1 %; MCH 30.6 pg (26.0-34.0); MCHC 33.5 g/dL (28.0-37.0); MCV 91.3 fL (80.0-100.0); MONOCYTES 10.9 %; MPV 7.9 fl. (7.2-11.1); NUCLEATED RBCS 0 /100WBC; PLATELET COUNT* 400 thou/uL (150-400); POLYS 74.2 %; RDW-CV 16.7 % (10.5-14.5); WBC 7.8 thou/uL (4.0-11.0)
[2019-12-18 18:48] LABS: APTT 25.3 Seconds (25.0-31.3); CALCIUM 8.1 mg/dL (8.5-10.1); CREATININE 6.4 mg/dL (0.6-1.3); INR 1.1; POTASSIUM 5.4 mmol/L (3.5-5.1); PROTIME 11.2 Seconds (9.20-11.50)
[2019-12-18 18:58] LABS: TOTAL BILIRUBIN 0.8 mg/dL (<0.1-1.0); TOTAL PROTEIN 6.6 g/dL (6.4-8.2)
[2019-12-18 20:00] LABS: URINE BILIRUBIN NEGATIVE (Negative); URINE BLOOD 1+ (Negative); URINE CLARITY CLEAR; URINE COLOR YELLOW; URINE GLUCOSE-RANDOM NEGATIVE (Negative); URINE KETONES NEGATIVE (Negative); URINE NITRITE-REFLEX NEGATIVE (Negative); URINE PROTEIN NEGATIVE (Negative); URINE UROBILINOGEN 0.2 E.U./dl (0.2-1.0)
[2019-12-18 20:01] LABS: URINE LEUKOCYTES-REFLEX 3+ (Negative)
[2019-12-18 20:09] LABS: SQUAMOUS 0-3 Few /LPF (0-3)
[2019-12-18 20:10] LABS: CASTS None Seen /LPF (None Seen); CRYSTALS None Seen /LPF (None Seen); URINE RBC 0-2 Rare /HPF (0-2); URINE WBC-REFLEX >25 Many /HPF (0-5)
[2019-12-18 22:15] VITALS: BP 135/49
[2019-12-18 22:40] VITALS: BP 116/85
[2019-12-19] MEDS ORDERED: PAIN RELIEF EX500 MG PO (03:01)
[2019-12-19] MEDS ORDERED: HYDROCORTISONE30 GM TOP (03:05)
[2019-12-19] MEDS ORDERED: MILK OF MA400 MG/5 M PO (03:06)
[2019-12-19] MEDS ORDERED: IPRAT-ALBUT 0.5-3 ML INH (03:07)
[2019-12-19 03:57] VITALS: BP 130/54
[2019-12-19 06:28] LABS: CALCIUM 7.7 mg/dL (8.5-10.1); CREATININE 6.4 mg/dL (0.6-1.3); POTASSIUM 4.9 mmol/L (3.5-5.1)
[2019-12-19 10:55] VITALS: BP 152/63
--- NOTE | 2019-12-19 12:49 | EKG ---
[place] [address] ELECTROCARDIOGRAM REPORT Name: SANDRA EDEN Room: [address] ADM IN [facility]#: [id number] Admission: 12/18/19 Attend Phys: Enrique Oliva, Discharge: Date of : [birth year] Report #: [id number] THIS REPORT FOR: //name// [facility] ED Test Date: 2019-12-18 Test Time: 18:18:28 Pat Name: SANDRA EDEN Department: Room: [facility] Gender: F Planning Consultant: : 1930 Requested By: Eugene Nuñez Order Number: [id number] MD: Tad Kraus Measurements Intervals [place] Rate: 83 P: [place]: QRS: 56 QRSD: 83 T: 61 QT: 367 QTc: 432 Interpretive Statements sinus rhythm Artifact in lead(s) I,aVR,aVL,V1,V2,V3,V4,V5,V6 and baseline wander in lead(s) II,III,aVR,aVF Compared to ECG 11/30/2019 19:20:19 Sinus bradycardia no longer present Electronically Signed On 12-19-2019 12:48:48 INTERPRETIVE NATURALIST by Tad Kraus [email or web address] <ELECTRONICALLY SIGNED> By: Tad Kraus MD, FACC 12/19/19 1248 17 17 Tad Kraus MD, FAC /EPI
[2019-12-19 20:40] VITALS: BP 162/63
[2019-12-20] VITALS: BP 98/73
[2019-12-20 04:00] VITALS: BP 151/62
[2019-12-20 06:52] LABS: HEMATOCRIT 20.3 % (37.0-47.0); MCH 31.4 pg (26.0-34.0); MCHC 34.1 g/dL (28.0-37.0); MCV 92.1 fL (80.0-100.0); MPV 8.3 fl. (7.2-11.1); RDW-CV 16.6 % (10.5-14.5)
[2019-12-20 07:13] LABS: ALBUMIN 2.3 g/dL (3.4-5.0); CALCIUM 7.5 mg/dL (8.5-10.1); MAGNESIUM 1.9 mg/dL (1.8-2.4); POTASSIUM 3.8 mmol/L (3.5-5.1); TOTAL BILIRUBIN 0.8 mg/dL (<0.1-1.0); TOTAL PROTEIN 5.4 g/dL (6.4-8.2)
[2019-12-20 07:14] LABS: CREATININE 5.3 mg/dL (0.6-1.3)
[2019-12-20 07:19] LABS: HEMOGLOBIN 6.9 gm/dL (12.0-15.0); RBC 2.2 mil/uL (4.20-5.00)
[2019-12-20 07:45] VITALS: BP 127/60
[2019-12-20 11:00] VITALS: BP 136/56; BP 142/56; BP 148/62; BP 155/84
[2019-12-21] VITALS: BP 142/59
[2019-12-21 04:00] VITALS: BP 155/51
[2019-12-21 05:59] LABS: HEMATOCRIT 25.8 % (37.0-47.0); HEMOGLOBIN 8.8 gm/dL (12.0-15.0); MCH 30.7 pg (26.0-34.0); MCV 90.5 fL (80.0-100.0); MPV 7.9 fl. (7.2-11.1); RBC 2.85 mil/uL (4.20-5.00); RDW-CV 16.3 % (10.5-14.5); WBC 5.2 thou/uL (4.0-11.0)
[2019-12-21 06:58] LABS: CALCIUM 7.8 mg/dL (8.5-10.1); CREATININE 4.4 mg/dL (0.6-1.3); MAGNESIUM 1.8 mg/dL (1.8-2.4); POTASSIUM 3.7 mmol/L (3.5-5.1)
[2019-12-21 08:00] VITALS: BP 148/58
[2019-12-21 12:00] VITALS: BP 132/60
[2019-12-21 16:00] VITALS: BP 128/62
[2019-12-21 20:00] VITALS: BP 163/69
[2019-12-22] VITALS: BP 163/61
[2019-12-22 04:00] VITALS: BP 166/71
[2019-12-22 05:22] LABS: HEMATOCRIT 27.5 % (37.0-47.0); HEMOGLOBIN 9.6 gm/dL (12.0-15.0); MCH 31.3 pg (26.0-34.0); MCHC 34.9 g/dL (28.0-37.0); MCV 89.9 fL (80.0-100.0); MPV 8.1 fl. (7.2-11.1); RBC 3.06 mil/uL (4.20-5.00); RDW-CV 15.8 % (10.5-14.5)
[2019-12-22 05:45] LABS: ALBUMIN 2.4 g/dL (3.4-5.0); CALCIUM 8.1 mg/dL (8.5-10.1); CREATININE 3.5 mg/dL (0.6-1.3); MAGNESIUM 1.8 mg/dL (1.8-2.4); POTASSIUM 3.1 mmol/L (3.5-5.1); TOTAL BILIRUBIN 0.6 mg/dL (<0.1-1.0)
[2019-12-22 08:00] VITALS: BP 162/57
[2019-12-22 11:38] VITALS: BP 173/63
[2019-12-22 16:00] VITALS: BP 150/58
[2019-12-22 20:00] VITALS: BP 158/63
[2019-12-23 03:49] LABS: HEMATOCRIT 27.4 % (37.0-47.0); HEMOGLOBIN 9.4 gm/dL (12.0-15.0); MCH 31.2 pg (26.0-34.0); MCHC 34.5 g/dL (28.0-37.0); MCV 90.3 fL (80.0-100.0); MPV 8.1 fl. (7.2-11.1); RBC 3.03 mil/uL (4.20-5.00); RDW-CV 15.6 % (10.5-14.5); WBC 5.6 thou/uL (4.0-11.0)
[2019-12-23 03:57] LABS: CALCIUM 7.4 mg/dL (8.5-10.1); CREATININE 2.6 mg/dL (0.6-1.3); MAGNESIUM 1.6 mg/dL (1.8-2.4)
[2019-12-23 03:58] LABS: POTASSIUM 2.9 mmol/L (3.5-5.1)
[2019-12-23 06:57] LABS: URINE BILIRUBIN NEGATIVE (Negative); URINE BLOOD 2+ (Negative); URINE CLARITY CLEAR; URINE COLOR YELLOW; URINE GLUCOSE-RANDOM NEGATIVE (Negative); URINE KETONES 1+ (Negative); URINE LEUKOCYTES 1+ (Negative); URINE NITRITE NEGATIVE (Negative); URINE PROTEIN NEGATIVE (Negative); URINE UROBILINOGEN 0.2 E.U./dl (0.2-1.0)
[2019-12-23 07:26] LABS: CASTS None Seen /LPF (None Seen); CRYSTALS None Seen /LPF (None Seen); SQUAMOUS 0-3 Few /LPF (0-3); URINE RBC 3-10 Few /HPF (0-2); URINE WBC 6-15 Few /HPF (0-5)
[2019-12-23 11:00] VITALS: BP 152/80
[2019-12-23 15:58] VITALS: BP 181/82
[2019-12-23 19:50] VITALS: BP 194/60
[2019-12-24 00:38] LABS: HEMATOCRIT 26.1 % (37.0-47.0); MCH 30.7 pg (26.0-34.0); MCHC 34.4 g/dL (28.0-37.0); MCV 89.4 fL (80.0-100.0); MPV 8.2 fl. (7.2-11.1); RBC 2.92 mil/uL (4.20-5.00); RDW-CV 15.3 % (10.5-14.5); WBC 5.1 thou/uL (4.0-11.0)
[2019-12-24 00:48] LABS: CALCIUM 7.7 mg/dL (8.5-10.1); MAGNESIUM 1.4 mg/dL (1.8-2.4); MAGNESIUM 1.5 mg/dL (1.8-2.4); POTASSIUM 3.2 mmol/L (3.5-5.1)
[2019-12-24 08:30] VITALS: BP 157/67
[2019-12-24 20:00] VITALS: BP 157/58
[2019-12-25 05:32] LABS: CALCIUM 7.7 mg/dL (8.5-10.1); CREATININE 1.7 mg/dL (0.6-1.3); MAGNESIUM 1.5 mg/dL (1.8-2.4); POTASSIUM 3.2 mmol/L (3.5-5.1)
[2019-12-25 08:10] VITALS: BP 172/67
[2019-12-25 09:55] LABS: HEMATOCRIT 26.5 % (37.0-47.0); HEMOGLOBIN 8.9 gm/dL (12.0-15.0); MCH 30.7 pg (26.0-34.0); MCHC 33.7 g/dL (28.0-37.0); MCV 90.9 fL (80.0-100.0); MPV 8.3 fl. (7.2-11.1); RBC 2.91 mil/uL (4.20-5.00); RDW-CV 15.5 % (10.5-14.5); WBC 5.4 thou/uL (4.0-11.0)
[2019-12-25 15:42] LABS: URINE BILIRUBIN NEGATIVE (Negative); URINE BLOOD 2+ (Negative); URINE CLARITY CLEAR; URINE COLOR YELLOW; URINE GLUCOSE-RANDOM NEGATIVE (Negative); URINE KETONES TRACE (Negative); URINE LEUKOCYTES-REFLEX TRACE (Negative); URINE NITRITE-REFLEX NEGATIVE (Negative); URINE PROTEIN TRACE (Negative); URINE SPECIFIC GRAVITY 1.015 (1.005-1.030); URINE UROBILINOGEN 0.2 E.U./dl (0.2-1.0)
[2019-12-25 15:50] LABS: URINE RBC 3-10 Few /HPF (0-2); URINE WBC-REFLEX 0-5 Rare /HPF (0-5)
[2019-12-25 15:51] LABS: CASTS None Seen /LPF (None Seen); CRYSTALS None Seen /LPF (None Seen); MUCUS None Seen strn/LPF (None Seen); SQUAMOUS 0-3 Few /LPF (0-3)
[2019-12-25 15:52] LABS: BACTERIA-REFLEX 1-9 Few /HPF (None Seen)
[2019-12-25 17:30] VITALS: BP 177/69
[2019-12-25 19:50] VITALS: BP 201/80
[2019-12-25 23:04] LABS: MAGNESIUM 1.5 mg/dL (1.8-2.4); POTASSIUM 3.6 mmol/L (3.5-5.1)
[2019-12-26] VITALS: BP 173/69
[2019-12-26 04:00] VITALS: BP 171/76
[2019-12-26 06:27] LABS: HEMATOCRIT 28.5 % (37.0-47.0); HEMOGLOBIN 9.7 gm/dL (12.0-15.0); MCH 30.9 pg (26.0-34.0); MCHC 34.1 g/dL (28.0-37.0); MCV 90.6 fL (80.0-100.0); MPV 8.3 fl. (7.2-11.1); RBC 3.14 mil/uL (4.20-5.00); RDW-CV 15.8 % (10.5-14.5); WBC 6.8 thou/uL (4.0-11.0)
[2019-12-26 06:39] LABS: CREATININE 1.4 mg/dL (0.6-1.3); POTASSIUM 3.8 mmol/L (3.5-5.1)
[2019-12-26 16:00] VITALS: BP 183/76
[2019-12-27 00:15] VITALS: BP 169/64
[2019-12-27 04:20] LABS: HEMATOCRIT 26.4 % (37.0-47.0); HEMOGLOBIN 8.9 gm/dL (12.0-15.0); MCH 30.5 pg (26.0-34.0); MCHC 33.8 g/dL (28.0-37.0); MCV 90.4 fL (80.0-100.0); MPV 8.4 fl. (7.2-11.1); RBC 2.92 mil/uL (4.20-5.00); RDW-CV 15.4 % (10.5-14.5)
[2019-12-27 04:28] LABS: CALCIUM 7.9 mg/dL (8.5-10.1); CREATININE 1.3 mg/dL (0.6-1.3); MAGNESIUM 1.9 mg/dL (1.8-2.4); POTASSIUM 3.2 mmol/L (3.5-5.1)
[2019-12-27 08:15] VITALS: BP 189/70
[2019-12-27 11:28] VITALS: BP 189/70
[2019-12-27] MEDS ORDERED: FLEET ENEMA133 ML RECTAL (14:58)
[2019-12-27] MEDS ORDERED: METOPROLOL TART25 MG PO (15:02)
--- NOTE | 2019-12-29 08:36 | CON ---
[address] [address] CONSULTATION Name: SANDRA EDEN Room: [address] IN M.R.#: [id number] Admission: 12/18/19 Attend Phys: Enrique Oliva, Discharge: 12/27/19 Date of : [birth year] Report #: [id number] THIS REPORT FOR: //name// CC: FAM unknown Enrique Oliva DATE OF SERVICE: 12/19/2019 NEPHROLOGY CONSULTATION CONSULTING PHYSICIAN: Dr. Oliva. REASON FOR NEPHROLOGY CONSULTATION: Acute kidney injury. REASON FOR ADMISSION: The patient sent over from rehabilitation facility because of elevated creatinine. HISTORY OF PRESENT ILLNESS: This is an 89-year-old female with past medical history of dementia. She lives in an [facility], she recently had internal fixation done for her left-sided femur fracture. This was done on 11/30, was sent over from the rehabilitation facility because her creatinine was found to be high. Her creatinine was 0.5 on 12/10, but it was found to be 6.4 and she also had potassium of 5.4. The patient was found to be very confused. Unknown if this could be her baseline, but it is very much possible that this could be her baseline. She seems to be dehydrated. She has also been having diarrhea, liquidy stools here. She was started on IV fluids. Her creatinine this morning is still 6.4. Potassium is improved to 4.9. Gonzalez catheter was inserted. I am not sure if she was retaining urine, but then 50 mL of urine came out. [facility], it looks like she also gets lisinopril and Fleet's enema and potassium supplementation have also been mentioned. The patient is not able to provide me any history right now. I did not see NSAIDs on her medication list from home. ALLERGIES: PENICILLIN. REVIEW OF SYSTEMS: Not able to obtain from the patient because of her mentation. PAST MEDICAL AND SURGICAL HISTORY: Includes hypertension, recent internal fixation for left femur fracture 11/30, dyslipidemia, glaucoma, osteopenia, dementia, malignant neoplasm of the breast. She is in a memory unit at the rehab facility. MEDICATIONS: Include tamsulosin, apixaban, ferrous sulfate, lidocaine, bisacodyl, Fleet enema as directed, Solu-Cortef, famotidine, vitamin D3, Vyzulta, potassium bicarbonate and citrate, cyanocobalamin, memantine, [place] [address] CONSULTATION Name: SANDRA EDEN Room: [address]#: [id number] Admission: 12/18/19 Attend Phys: Enrique Oliva, Discharge: 12/27/19 Date of : [birth year] Report #: [id number] lisinopril 2.5 mg a day, Tylenol, and ondansetron. FAMILY HISTORY: We do not know. SOCIAL HISTORY: She has not been smoking or drinking alcohol or use illicit drugs at the rehab facility. PHYSICAL EXAMINATION: VITAL SIGNS: Blood pressure is 130/54, temperature 37.2, pulse rate is 96, respiratory rate is 21, and pulse ox is 98% on 2 liters oxygen by nasal cannula. GENERAL: She is a very restless, very confused right now, very fidgety. HEAD AND EYES: Atraumatic, normocephalic. Normal conjunctivae. EARS, NOSE, AND THROAT: Normal ears and nose. Mucous membranes are extremely dry. NECK: No JVD. CHEST: Bilaterally clear to auscultation anteriorly. No crackles or wheezing. CARDIOVASCULAR: S1, S2 normal. No murmurs. ABDOMEN: Soft, nondistended, nontender. Bowel sounds are present. EXTREMITIES: Lower extremities, there is no lower extremity edema. NEUROLOGIC: She seems to be very confused and very fidgety, restless. PSYCHIATRIC: Not able to assess psych. LABORATORY DATA: Hemoglobin is 8.3, platelet count 400. Sodium 136, potassium 4.9, chloride 102, CO2 19, BUN 63, and creatinine 6.4. Other labs are reviewed. IMAGING: Head CT and chest x-ray were reviewed. ASSESSMENT: 1. Acute kidney injury in the setting of intravascular volume depletion, possible urinary retention. She was also getting lisinopril at home. Renal ultrasound is pending. UA showed 1+ blood, 0-2 rbc's per high power field. 2. Mild hyperkalemia in the setting of acute renal insufficiency, improved with IV fluids. 3. Possible urinary retention? She has a Gonzalez catheter in place. 4. Anion gap metabolic acidosis in the setting of renal insufficiency. 5. Recent femur fracture, status post internal fixation on 11/30. 6. History of dementia. PLAN: 1. We will check a CPK level. 2. Continue with IV fluids. We will change her to half normal saline with 75 mEq sodium bicarbonate, will run the 125 mL an hour. 3. Check a renal ultrasound. 4. Please note, the creatinine was 0.5 on 12/10. 5. Strict I's and O's. 6. [place] [address] CONSULTATION Name: SANDRA EDEN Room: [address] IN ..#: [id number] Admission: 12/18/19 Attend Phys: Enrique Oliva, Discharge: 12/27/19 Date of : [birth year] Report #: [id number] Thank you for this consultation. Check morning labs. Discussed with the patient's nurse. We will continue to follow with you. <ELECTRONICALLY SIGNED> By: Monserrat Cueto MD 12/29/19 0836 1044 [id number] Cueto MD /nt
== END 2019-12-27 15:00 | DRG 640 ==
LOC: M.ERS 18:09 → M.2W 20:02 → M.TBA-ER 20:02 → M.2W 22:40 → M.3W 12-22 14:25
PROVIDERS: Family Medicine; Internal Medicine; ADMIT Family Medicine
PROC: 30233N1 Transfusion of Nonautologous Red Blood Cells into Peripheral Vein, Percutaneous Approach (ICD-10-PCS; principal; 2019-12-20)
DX: E86.0 Dehydration (principal); N17.0 Acute kidney failure with tubular necrosis; N39.0 Urinary tract infection, site not specified; E44.1 Mild protein-calorie malnutrition; Z16.21 Resistance to vancomycin; E87.2 Acidosis; E78.5 Hyperlipidemia, unspecified; F03.90 Unspecified dementia, unspecified severity, without behavioral disturbance, psychotic disturbance, mood disturbance, and anxiety; I12.9 Hypertensive chronic kidney disease with stage 1 through stage 4 chronic kidney disease, or unspecified chronic kidney disease; E86.9 Volume depletion, unspecified; E87.5 Hyperkalemia; I48.91 Unspecified atrial fibrillation; N18.3 Chronic kidney disease, stage 3 (moderate); D50.9 Iron deficiency anemia, unspecified; R62.7 Adult failure to thrive; E83.42 Hypomagnesemia; E87.6 Hypokalemia; B95.2 Enterococcus as the cause of diseases classified elsewhere; Z88.0 Allergy status to penicillin; Z68.23 Body mass index [BMI] 23.0-23.9, adult; Z85.3 Personal history of malignant neoplasm of breast; Z79.899 Other long term (current) drug therapy